=== PATIENT | female | born 1965 | race Caucasian/White ===

== ENCOUNTER 2023-01-26 07:12 | Day surgery (SDC) | payer OTHER, SELFPAY ==
[2023-01-26] VITALS (7 sets, daily range): BP systolic 135–185; BP diastolic 83–104; PULSE 62–73; RESP 16; TEMP 36.5–36.8; O2SAT 96–100; BMI 32.0
--- NOTE | 2023-01-26 07:53 | HP.PCM_ITS ---
[facility] - General General Date of Admission: 01/26/23 Date of Service: 01/26/23 Chief Complaint: Screening colonoscopy [facility] Narrative TOM BYERS, is a 57 F who presents today for screening colonoscopy. She has past medical history of mild hypertension which is controlled with medications. She has a family history of colon polyps. She denies any personal or family history of colon cancer. She is never had a colonoscopy in the past. She does not have any abdominal pain. She is not having any cramping, vomiting or diarrhea. She denies any bleeding per rectum. Overall she is in very good health. [facility] Medical History (Updated 01/21/23 @ 10:38 by Jaki Bach) Alcohol use Anemia Anxiety Arthritis Depression Heartburn History of edema History of pain when walking HTN (hypertension) Leg cramps Migraine headache Non-smoker Post-menopausal Restless legs Seasonal allergies Wears contact lenses Home Medications cholecalciferol (vitamin D3) 125 mcg (5,000 unit) capsule 125 mcg PO DAILY 12/22/22 [History Last Taken Unknown] loratadine 5 mg-pseudoephedrine ER 120 mg tablet,extended release,12hr (Claritin-D 12 Hour) 1 tab PO Q12H 12/22/22 [History Last Taken Unknown] magnesium oxide 500 mg tablet 500 mg PO DAILY 12/22/22 [History Last Taken Unknown] metoprolol succinate 25 mg tablet,extended release 24 hr (Toprol XL) 25 mg PO QHS 12/22/22 [History Last Taken 01/25/23] potassium chloride 10 mEq capsule,extended release 10 meq PO DAILY 12/22/22 [History Last Taken Unknown] Allergy/AdvReac Type Severity Reaction Status Date / Time Sulfa (Sulfonamide Allergy Hives Verified 01/26/23 07:24 Antibiotics) adhesive tape AdvReac Rash Verified 01/21/23 10:24 Family History (Updated 12/22/22 @ 10:21 by Tana Ahn) Brother Colon polyps Surgical History (Updated 01/21/23 @ 10:38 by Jaki Bach) History of meniscectomy of right knee Hx of appendectomy Hx of tonsillectomy Social History (Updated 12/22/22 @ 10:28 by Tana Ahn) current occupational status: unemployed Smoking Status: Never smoker ROS Review of Systems ROS Unobtainable: other Constitutional Constitutional: Denies fatigue, fever(s), poor appetite, weight gain or weight loss ENT HEENT: Denies mouth lesions Cardiovascular Cardiovascular: Denies abdominal bloating, abdominal edema or abdominal pain Respiratory/Chest Respiratory/Chest: Denies change in mental status, change in phlegm color, chest congestion or chest tightness Gastrointestinal Gastrointestinal: Denies belching, bloating, change in bowel habits, change in stool character, chewing difficulty, coffee ground emesis, constipation, cramping, diarrhea, dyspepsia, dysphagia, early satiety, excessive flatus, fecal incontinence, heartburn, hematemesis, hematochezia, hemorrhoids, loose stools, melena, nausea, odynophagia, rectal bleeding, tenesmus, vomiting or weight changes Genitourinary Genitourinary: Denies abdominal discomfort, burning urination or itching Musculoskeletal Musculoskeletal: Reports as per HPI; Denies muscle weakness or myalgias Integumentary Integumentary: Denies jaundice Neurologic Neurologic: Denies lack of coordination or weakness Psychiatric Psychiatric: Denies confusion, depression, memory loss, mood swings, paranoia or suicidal ideation Endocrine Endocrinology: Denies systems reviewed and no addt'l complaints, except as documented Hematologic/Lymphatic Hematologic/Lymphatic: Denies anemia, easy bleeding, easy bruising or lymphadenopathy Allergic/Immunologic Allergic/Immunologic: Denies systems reviewed and no addt'l complaints, except as documented Physical Exam Const alert General Appearance: cooperative Orientation / Consciousness: oriented to person HEENT hearing grossly normal bilaterally Head and Scalp: normal to inspection Face and Sinus: face symmetric Nose: external nose normal Mouth: oral and palatal mucosa normal Eyes conjunctivae normal General Eye: normal appearance of both eyes Neck full ROM General: normal visual inspection Lymph Lymphatic: no lymphadenopathy noted Chest inspection of chest normal and palpation of chest normal Chest: symmetrical chest wall rise Resp normal respiratory effort Effort and Inspection: able to speak in complete sentences Cardio regular rate GI non-distended Percussion: normal to percussion Rectal Exam: deferred Neuro Speech: speech normal Gait (Neuro): normal gait Assessment & Plan Assessment/Plan (1) Encounter for screening for malignant neoplasm of colon: PLAN: She will undergo screening colonoscopy. She was explained alternatives, risk, benefits including not withstanding bleeding, infection, sepsis, perforation, need for emergent . She will have an ASA of 2.
[2023-01-26] MEDS: Lactated Ringers 1,000 ML 15 ML IV (07:55)
--- NOTE | 2023-01-26 08:30 | COLBX_PTH ---
PATIENT: TOM BYERS LOC: EN U#:[id number] AGE/SX: 57/F ROOM: RE01/26/[address]: Dr. Doug Carlson DO : 1965 BED: DIS: 01/26/2023 SPEC #: [id number] RECD: 01/26/23 10:35 STATUS: TARAS REFiorella #: [id number] [place]: 01/26/23 08:[address]: Doug Carlson DEPT: SURGICAL PATHOLOGY RECD BY: Nahomi Bond ENTERED: 01/26/23 11:16 SP TYPE: COLON BX OTHR DR: Dr. Kojo Miller MD Tissues: Cecum, NOS Procedures: Surgery Specimen Level IV HEADER OPERATION: Colonoscopy ? open access (MAC) and polypectomy PRE-OP DIAGNOSIS: Screening TISSUE SUBMITTED: Cecal polyp MICROSCOPIC DIAGNOSIS Cecal polyp, biopsy: Hyperplastic polyp. AM:carolina 01/27/2023 MICROSCOPIC DESCRIPTION Slides are reviewed. GROSS DESCRIPTION Received in fixative is one container labeled with the patient's name and designated cecal polyp. The specimen consists of one irregular fragment of light pineda soft tissue that measures 0.5 x 0.3 x 0.1 cm. The specimen is totally submitted in one cassette. / AM:carolina 01/26/2023 TC:5 CPT: 09795
--- NOTE | 2023-01-26 08:49 | OP.COLON_ITS ---
Patient Name: Razia Cook Procedure Date: 01/26/2023 8:21 AM Date of : 1965 Age: 57 Procedure: Colonoscopy Indications: Screening for colorectal malignant neoplasm Providers: Doug Carlson DO Referring MD: Doug Carlson DO Medicines: Monitored Anesthesia Care Patient Profile: This is a 57 year old female. Refer to note in patient chart for documentation of history and physical. Last Colonoscopy: none. The patient's first colonoscopy is today. Complications: No immediate complications. Procedure: Pre-Anesthesia Assessment: - Prior to the procedure, a History and Physical was performed, and patient medications and allergies were reviewed. The patient is competent. The risks and benefits of the procedure and the sedation options and risks were discussed with the patient. All questions were answered and informed consent was obtained. Patient identification and proposed procedure were verified by the physician in the pre-procedure area. Mental Status Examination: alert and oriented. Respiratory Examination: clear to auscultation. CV Examination: normal. Prophylactic Antibiotics: The patient does not require prophylactic antibiotics. Prior Anticoagulants: The patient has taken no previous anticoagulant or antiplatelet agents. ASA Grade Assessment: II - A patient with mild systemic disease. After reviewing the risks and benefits, the patient was deemed in satisfactory condition to undergo the procedure. The anesthesia plan was to use monitored anesthesia care (MAC). Immediately prior to administration of medications, the patient was re-assessed for adequacy to receive sedatives. The heart rate, respiratory rate, oxygen saturations, blood pressure, adequacy of pulmonary ventilation, and response to care were monitored throughout the procedure. The physical status of the patient was re-assessed after the procedure. After I obtained informed consent, the scope was passed under direct vision. Throughout the procedure, the patient's blood pressure, pulse, and oxygen saturations were monitored continuously. The colonoscope was introduced through the anus and advanced to the cecum, identified by appendiceal orifice and ileocecal valve. The colonoscopy was performed without difficulty. The patient tolerated the procedure well. The quality of the bowel preparation was adequate. Scope In: 8:30:45 AM Scope Withdrawal Time 0 hours 7 minutes 42 seconds Scope Out: 8:43:17 AM Total Procedure Duration Time 0 hours 12 minutes 32 seconds Findings: The perianal and digital rectal examinations were normal. A few small-mouthed diverticula were found in the recto-sigmoid colon and sigmoid colon. A 5 mm polyp was found in the cecum. The polyp was sessile. The polyp was removed with a hot snare. Resection and retrieval were complete. Verification of patient identification for the specimen was done. Estimated blood loss was minimal. Impression: - Diverticulosis in the recto-sigmoid colon and in the sigmoid colon. - One 5 mm polyp in the cecum, removed with a hot snare. Resected and retrieved. Recommendation: - Repeat colonoscopy in 5 years for surveillance. - Continue present medications. Procedure Code(s): --- Professional --- 35433, Colonoscopy, flexible; with removal of tumor(s), polyp(s), or other lesion(s) by snare technique CPT copyright 2017 [employer]. All rights reserved. The codes documented in this report are preliminary and upon airway traffic controller review may be revised to meet current compliance requirements. Doug Carlson DO 01/26/2023 8:49:12 AM This report has been signed electronically. Number of Addenda: 0 Note Initiated On: 01/26/2023 8:21 AM
--- NOTE | 2023-01-26 08:49 | OP.CCLET_ITS ---
01/26/2023 Kojo Miller Re : Colonoscopy procedure for Razia Cook Dear Angela This procedure was performed on Thursday, January 26, 2023. My impressions and recommendations are as follows: Impressions : - Diverticulosis in the recto-sigmoid colon and in the sigmoid colon. - One 5 mm polyp in the cecum, removed with a hot snare. Resected and retrieved. Recommendations : - Repeat colonoscopy in 5 years for surveillance. - Continue present medications. My findings are described in the full procedure note, which is enclosed. If I can be of further assistance, please feel free to contact me at . Sincerely, Doug Carlson, 01/26/2023 8:49:12 AM This report has been signed electronically.
== END 2023-01-26 09:29 | disposition home or self-care (01) ==
LOC: EN 07:16 → AC 07:18
PROVIDERS: Visit Provider Internal Medicine Gastroenterology
PROC: 0DJD8ZZ Inspection of Lower Intestinal Tract, Via Natural or Artificial Opening Endoscopic (ICD-10-PCS; CPT 45378; principal; 2023-01-26 08:25)
DX: Z12.11 Encounter for screening for malignant neoplasm of colon (principal); K57.30 Diverticulosis of large intestine without perforation or abscess without bleeding; I10 Essential (primary) hypertension; K63.5 Polyp of colon; Z80.0 Family history of malignant neoplasm of digestive organs
CPT/HCPCS: 45385; 88305; J7120; J2405